=== PATIENT | female | born 1945 | race Native Hawaiian/Other Pacific Islander ===

== ENCOUNTER 2017-02-03 12:07 | Outpatient (CLI) | payer OTHER, MEDICARE | END 2017-02-03 19:22 | disposition home or self-care (01) | LOC: US 12:07 | DX: M79.604 Pain in right leg (principal) ==

== ENCOUNTER 2017-12-16 12:09 | Outpatient (CLI) | payer OTHER, MEDICARE | END 2017-12-16 21:53 | disposition home or self-care (01) | LOC: LAB 12:09 | DX: R19.7 Diarrhea, unspecified (principal) | CPT/HCPCS: 82272; 82705; 83630; 87015; 87045; 87328; 87329; 87338; 87899 ==